=== PATIENT | female | born 1930 | race Caucasian/White ===

== ENCOUNTER 2017-09-13 13:11 | Emergency (ER) | payer MEDICARE, BC ==
[2017-09-13 13:30] LABS: Basophils % (A) 0 %; Eosinophils # (A) 0.1 k/uL (0-0.7); Eosinophils % (A) 2 %; HCT 33.6 % (34.0-46.0); HGB 11.1 gm/dL (11.4-16.0); Lymphocytes # (A) 1.5 k/uL (1.0-4.8); Lymphocytes % (A) 22 %; MCH 34.4 pg (25.0-35.0); MCHC 32.9 g/dL (31.0-37.0); MCV 104.6 fL (80.0-100.0); Macrocytosis Slight; Monocytes # (A) 0.3 k/uL (0-1.0); Monocytes % (A) 4 %; Neutrophils # (A) 4.9 k/uL (1.3-7.7); Neutrophils % (A) 72 %; Platelet Count 254 k/uL (150-450); RBC 3.22 m/uL (3.80-5.40); WBC 6.8 k/uL (3.8-10.6)
[2017-09-13 13:39] LABS: Albumin 3.7 g/dL (3.5-5.0); Potassium 4.3 mmol/L (3.5-5.1); Total Bilirubin 0.3 mg/dL (0.2-1.3); Total Protein 6.5 g/dL (6.3-8.2)
[2017-09-13 13:43] LABS: Partial Thromboplastin Time 23.5 sec (22.0-30.0); Prothrombin Time 10.2 sec (9.0-12.0)
--- NOTE | 2017-09-13 13:51 | ED ---
General Adult HPI - General Chief complaint: Neuro Symptoms/Deficit Stated complaint: Poss CVA Time Seen by Provider: 09/13/17 13:12 Source: patient, EMS, RN notes reviewed, old records reviewed Mode of arrival: EMS Limitations: no limitations - History of Present Illness Initial comments: 87 yo female presents from the shelter with slurred speech and difficulty finding words. Patient's symptoms began at approximately 12:30. They are resolving at the time of my evaluation. Speech is clear. Patient has no complaints, no headache. No vision changes. No chest pain or shortness of breath. No abdominal pain. No nausea vomiting or diarrhea. Denies any focal weakness or numbness. - Related Data Home Medications Medication Instructions Recorded Confirmed Lisinopril [Prinivil] 10 mg PO HS 05/07/14 09/13/17 Sertraline HCl [Zoloft] 150 mg PO DAILY 05/07/14 09/13/17 ARIPiprazole [Abilify] 10 mg PO HS 09/13/17 09/13/17 Levothyroxine Sodium 125 mcg PO DAILY 09/13/17 09/13/17 Pravastatin Sodium [Pravachol] 20 mg PO HS 09/13/17 09/13/17 Previous Rx's Medication Instructions Recorded ALPRAZolam [Xanax] 0.25 mg PO TID PRN #15 tab 05/07/14 Aspirin 325 mg PO DAILY #30 tab 09/13/17 Allergies Allergy/AdvReac Type Severity Reaction Status Date / Time No Known Allergies Allergy Verified 09/13/17 13:36 Review of Systems ROS Statement: Those systems with pertinent positive or pertinent negative responses have been documented in the HPI. ROS Other: All systems not noted in ROS Statement are negative. Past Medical History Past Medical History: Hyperlipidemia, Hypertension, Thyroid Disorder History of Any Multi-Drug Resistant Organisms: None Reported Past Surgical History: Joint Replacement, Orthopedic Surgery, Tonsillectomy Past Psychological History: Anxiety, Depression Smoking Status: Never smoker Past Alcohol Use History: None Reported Past Drug Use History: None Reported General Exam Limitations: no limitations General appearance: alert, in no apparent distress Head exam: Present: atraumatic, normocephalic Eye exam: Present: normal appearance, PERRL, EOMI ENT exam: Present: normal exam Neck exam: Present: normal inspection. Absent: tenderness, meningismus Respiratory exam: Present: normal lung sounds bilaterally. Absent: respiratory distress, wheezes Cardiovascular Exam: Present: regular rate, normal rhythm GI/Abdominal exam: Present: soft. Absent: distended, tenderness Rectal exam: Present: deferred Extremities exam: Present: normal inspection, normal capillary refill. Absent: full ROM Neurological exam: Present: alert, oriented X3, CN II-XII intact, other (NIH 0 at 1310). Absent: motor sensory deficit Psychiatric exam: Present: normal affect, normal mood Skin exam: Present: warm, dry, intact. Absent: cyanosis, diaphoretic Course Vital Signs 09/13/17 09/13/17 09/13/17 13:18 14:30 15:11 Temperature 98.9 F Pulse Rate 69 95 Respiratory 17 18 Rate Blood Pressure 223/86 150/73 178/81 O2 Sat by Pulse 99 98 Oximetry - Reevaluation(s) Reevaluation #1: 09/13/17 16:06 On reevaluation, patient has normal speech, NIH is 0 EKG Findings - EKG Comments: EKG Findings:: EKG, normal sinus rhythm, rate of 72, OK interval 154, QRS duration 78, QTC 440, no acute signs of ischemia Medical Decision Making - Medical Decision Making 87 yo female presenting with dysarthria. This is resolved at the time my evaluation. Neurologic exam is nonfocal. Head CT is obtained, does show chronic small vessel ischemia with no acute intracranial hemorrhage. Laboratory studies reveal normal blood cell count, stable hemoglobin, normal electrolytes. Chest x-ray negative for any acute intrathoracic process. On reevaluation, patient remains nonfocal. Case is discussed with patient's primary care physician Dr. Edmonds, he is able to evaluate the patient in the next several days. He will continue TIA workup as an outpatient. Patient does admit that she has been started on Xanax, she took this prior to her nap. Slurred speech may have been drug effect. Patient stays at an assisted living facility, she does have a medical alert bracelet. - Lab Data Result diagrams: 09/13/17 13:19 09/13/17 13:19 Lab Results 09/13/17 09/13/17 09/13/17 Range/Units 13:19 13:19 13:19 WBC 6.8 (3.8-10.6) k/uL RBC 3.22 L (3.80-5.40) m/uL Hgb 11.1 L (11.4-16.0) gm/dL Hct 33.6 L (34.0-46.0) % MCV 104.6 H (80.0-100.0) fL MCH 34.4 (25.0-35.0) pg MCHC 32.9 (31.0-37.0) g/dL RDW 14.0 (11.5-15.5) % Plt Count 254 (150-450) k/uL Neutrophils % 72 % Lymphocytes % 22 % Monocytes % 4 % Eosinophils % 2 % Basophils % 0 % Neutrophils # 4.9 (1.3-7.7) k/uL Lymphocytes # 1.5 (1.0-4.8) k/uL Monocytes # 0.3 (0-1.0) k/uL Eosinophils # 0.1 (0-0.7) k/uL Basophils # 0.0 (0-0.2) k/uL Macrocytosis Slight PT (9.0-12.0) sec INR (<1.2) APTT (22.0-30.0) sec Sodium 141 (137-145) mmol/L Potassium 4.3 (3.5-5.1) mmol/L Chloride 104 (98-107) mmol/L Carbon Dioxide 25 (22-30) mmol/L Anion Gap 12 mmol/L BUN 17 (7-17) mg/dL Creatinine 1.01 (0.52-1.04) mg/dL Est GFR (CKD-EPI)AfAm 58 (>60 ml/min/1.73 sqM) Est GFR (CKD-EPI)NonAf 51 (>60 ml/min/1.73 sqM) Glucose 121 H (74-99) mg/dL Calcium 9.0 (8.4-10.2) mg/dL Total Bilirubin 0.3 (0.2-1.3) mg/dL AST 17 (14-36) U/L ALT 14 (9-52) U/L Alkaline Phosphatase 82 (38-126) U/L Total Creatine Kinase 42 (30-135) U/L CK-MB (CK-2) 0.4 (0.0-2.4) ng/mL CK-MB (CK-2) Rel Index 1.0 Troponin I 0.015 (0.000-0.034) ng/mL Total Protein 6.5 (6.3-8.2) g/dL Albumin 3.7 (3.5-5.0) g/dL 09/13/17 Range/Units 13:19 WBC (3.8-10.6) k/uL RBC (3.80-5.40) m/uL Hgb (11.4-16.0) gm/dL Hct (34.0-46.0) % MCV (80.0-100.0) fL MCH (25.0-35.0) pg MCHC (31.0-37.0) g/dL RDW (11.5-15.5) % Plt Count (150-450) k/uL Neutrophils % % Lymphocytes % % Monocytes % % Eosinophils % % Basophils % % Neutrophils # (1.3-7.7) k/uL Lymphocytes # (1.0-4.8) k/uL Monocytes # (0-1.0) k/uL Eosinophils # (0-0.7) k/uL Basophils # (0-0.2) k/uL Macrocytosis PT 10.2 (9.0-12.0) sec INR 1.0 (<1.2) APTT 23.5 (22.0-30.0) sec Sodium (137-145) mmol/L Potassium (3.5-5.1) mmol/L Chloride (98-107) mmol/L Carbon Dioxide (22-30) mmol/L Anion Gap mmol/L BUN (7-17) mg/dL Creatinine (0.52-1.04) mg/dL Est GFR (CKD-EPI)AfAm (>60 ml/min/1.73 sqM) Est GFR (CKD-EPI)NonAf (>60 ml/min/1.73 sqM) Glucose (74-99) mg/dL Calcium (8.4-10.2) mg/dL Total Bilirubin (0.2-1.3) mg/dL AST (14-36) U/L ALT (9-52) U/L Alkaline Phosphatase (38-126) U/L Total Creatine Kinase (30-135) U/L CK-MB (CK-2) (0.0-2.4) ng/mL CK-MB (CK-2) Rel Index Troponin I (0.000-0.034) ng/mL Total Protein (6.3-8.2) g/dL Albumin (3.5-5.0) g/dL Disposition Clinical Impression: Transient cerebral ischemia Disposition: HOME SELF-CARE Condition: Fair Instructions: Transient Ischemic Attack (ED) Prescriptions: Aspirin 325 mg PO DAILY #30 tab Referrals: Donnie Edmonds MD [Primary Care Provider] - 1-2 days Time of Disposition: 16:08
--- NOTE | 2017-09-13 14:00 | XR ---
EXAMINATION TYPE: XR chest 2V DATE OF EXAM: 09/13/2017 COMPARISON: None HISTORY: 87-year-old female confusion, altered mental status TECHNIQUE: Frontal and lateral views FINDINGS: Heart upper limits of normal in size. At this Calcifications mild interstitial prominence without consolidation or pleural effusion. IMPRESSION: Chronic-appearing changes. No acute process seen.
--- NOTE | 2017-09-13 14:06 | CT ---
EXAMINATION TYPE: CT brain wo con DATE OF EXAM: 09/13/2017 COMPARISON: 11/30/2010 HISTORY: Garbled speech CT DLP: 1150 mGycm Automated exposure control for dose reduction was used. TECHNIQUE: CT scan of the head is performed without contrast. FINDINGS: There is no acute intracranial hemorrhage or midline shift identified. There is diffuse v entricular and sulcal prominence consistent with diffuse age-related cerebral atrophy. No suspicious extra-axial fluid collection is seen. There is low-attenuation in the periventricular white matter c onsistent with chronic small vessel ischemic change. The globes are intact and the visualized sinuse s are clear. Atherosclerosis is noted of the intracranial vasculature. IMPRESSION: No acute intracranial hemorrhage or midline shift. There is diffuse age-related cerebra l atrophy and chronic small vessel ischemic change noted.
[2017-09-13 14:13] LABS: Creatine Kinase MB 0.4 ng/mL (0.0-2.4); Troponin I 0.015 ng/mL (0.000-0.034)
[2017-09-13 14:49] VITALS: TEMP 98.9
[2017-09-13 15:17] VITALS: PULSE 95; RESP 18
[2017-09-13 18:05] VITALS: BP 178/88
== END 2017-09-13 18:03 | disposition home or self-care (01) ==
LOC: EC 13:11
DX: G45.9 Transient cerebral ischemic attack, unspecified (principal); I10 Essential (primary) hypertension; E78.5 Hyperlipidemia, unspecified; E07.9 Disorder of thyroid, unspecified; F41.9 Anxiety disorder, unspecified; F32.9 Major depressive disorder, single episode, unspecified
CPT/HCPCS: 36415; 70450; 71046; 80053; 82550; 82553; 84484; 85025; 85610; 85730; 93005; 99285